=== PATIENT | female | born 1965 | race Caucasian/White ===

== ENCOUNTER 2018-10-16 07:03 | Outpatient (CLI) | payer OTHER, SELFPAY ==
[2018-10-16 08:55] LABS: ALT 46 U/L (12-78); AST 22 U/L (15-37); Albumin 3.8 g/dL (3.4-5.0); Alkaline Phosphatase 74 U/L (46-116); Anion Gap 8.7 mmol/L (3-11); BUN 15 mg/dL (7-18); Bilirubin, Total 0.5 mg/dL (0.2-1.0); CO2 27.3 mmol/L (21.0-32.0); CREATININE 0.88 mg/dL (0.55-1.02); Calcium 8.5 mg/dL (8.5-10.1); Chloride 104 mmol/L (98-107); Cholesterol 197 mg/dL (50-200); Glucose 97 mg/dL (70-100); HDL Cholesterol 70 mg/dL (40-60); LDL CHOLESTEROL 106 mg/dL (<100); Potassium 4.5 mmol/L (3.5-5.1); Sodium 140 mmol/L (136-145); Total Protein 6.9 g/dL (6.4-8.2); Triglyceride 91 mg/dL (30-150)
== END 2018-10-16 07:23 ==
PROVIDERS: Nurse Practitioner Family; PCP Emergency Medicine; Visit Provider Emergency Medicine
DX: Z00.00 Encounter for general adult medical examination without abnormal findings (principal); Z13.220 Encounter for screening for lipoid disorders; Z13.228 Encounter for screening for other metabolic disorders
CPT/HCPCS: 36415; 80053; 80061; 83721

== ENCOUNTER 2019-08-09 02:50 | Outpatient (CLI) | payer OTHER, SELFPAY | END 2019-08-09 03:10 | PROVIDERS: PCP Emergency Medicine; Visit Provider Nurse Practitioner | DX: R00.2 Palpitations (principal); I47.1 Supraventricular tachycardia; I49.1 Atrial premature depolarization | CPT/HCPCS: 93225 ==

== ENCOUNTER 2019-08-12 12:37 | Outpatient (CLI) | payer OTHER, SELFPAY ==
--- NOTE | 2019-08-16 11:28 | W.HOLTRPT ---
Date of service: 08/16/19 Time of Service: 11:28 Holter Monitor Report Holter Monitor Note: This is a 48-hour Holter monitor ordered for the indication of palpitations. ?There were 32 episodes of supraventricular tachycardia with the longest lasting 28 beats. Maximum heart rate was 159 bpm. ?There were frequent (12%) premature atrial contractions. ?There were 0 episodes of ventricular tachycardia and rare (0.2%) single ventricular ectopic beats. ?There were no pauses greater than 3 seconds, no episodes of atrial fibrillation and no evidence of high degree heart block. ?Patient triggered event was associated with supraventricular tachycardia.
== END 2019-08-12 12:57 ==
PROVIDERS: PCP Emergency Medicine; Visit Provider Emergency Medicine
DX: R00.2 Palpitations (principal); I47.1 Supraventricular tachycardia; I49.1 Atrial premature depolarization
CPT/HCPCS: 93226

== ENCOUNTER 2020-02-18 12:52 | Outpatient (REF) | payer OTHER, SELFPAY ==
[2020-02-18 20:17] LABS: *AMPHETAMINES SCREEN URINE Negative (Negative); *BARBITURATES SCREEN URINE Negative (Negative); *BENZODIAZEPINES SCREEN URINE Negative (Negative); Cannabinoids THC Negative (Negative); Cocaine Screen,Urine Negative (Negative); METHADONE URINE SCREEN Negative (Negative); OPIATES URINE SCREEN Negative (Negative); Tricyclic Antidepressants Negative (Negative)
== END 2020-02-18 13:12 ==
LOC: LBN 12:52
PROVIDERS: PCP Emergency Medicine; Visit Provider Family Medicine
DX: Z02.1 Encounter for pre-employment examination (principal); Z02.83 Encounter for blood-alcohol and blood-drug test
CPT/HCPCS: 80307

== ENCOUNTER 2020-05-29 04:16 | Outpatient (CLI) | payer OTHER, SELFPAY ==
[2020-05-30 20:29] LABS: Patient Race White; SARS-CoV-2 RNA Undetected (Undetected); SARS-CoV-2 Specimen Source Nasal
== END 2020-05-29 04:36 ==
PROVIDERS: PCP Emergency Medicine; Visit Provider Emergency Medicine
DX: Z11.59 Encounter for screening for other viral diseases (principal)
CPT/HCPCS: U0003

== ENCOUNTER 2020-07-20 02:35 | Outpatient (CLI) | payer OTHER, SELFPAY ==
[2020-07-21 15:35] LABS: COVID-19 RT-PCR Result NEGATIVE (Negative)
== END 2020-07-20 02:55 ==
PROVIDERS: PCP Emergency Medicine; Visit Provider Emergency Medicine
DX: Z20.822 Contact with and (suspected) exposure to COVID-19 (principal)
CPT/HCPCS: U0003

== ENCOUNTER 2020-09-11 03:40 | Outpatient (CLI) | payer OTHER, SELFPAY ==
[2020-09-12 12:49] LABS: COVID-19 RT-PCR UVMMC Result Negative (Negative)
== END 2020-09-11 03:41 | disposition home or self-care (01) ==
LOC: LBO 03:40
PROVIDERS: PCP Emergency Medicine; Visit Provider Emergency Medicine
DX: Z20.822 Contact with and (suspected) exposure to COVID-19 (principal)
CPT/HCPCS: U0003

== ENCOUNTER 2021-03-20 10:55 | Outpatient (CLI) | payer OTHER, SELFPAY ==
[2021-03-20 12:58] LABS: Anion Gap 7.4 mmol/L (3-11); CO2 27.6 mmol/L (21.0-32.0); Chloride 104 mmol/L (98-107); Potassium 4.5 mmol/L (3.5-5.1); Sodium 139 mmol/L (136-145)
[2021-03-22 21:27] LABS: Tissue Transglutaminase Ab IgA <1.2 U/mL
== END 2021-03-20 10:56 | disposition home or self-care (01) ==
LOC: LOS 10:56
PROVIDERS: PCP Emergency Medicine; Visit Provider Family Medicine
DX: E87.1 Hypo-osmolality and hyponatremia (principal); K52.9 Noninfective gastroenteritis and colitis, unspecified
CPT/HCPCS: 36415; 80051; 83516

== ENCOUNTER 2021-10-15 13:12 | Outpatient (CLI) | payer OTHER, SELFPAY ==
--- NOTE | 2021-10-15 09:45 | DI.RAD_ITS ---
Exam(s) XR FOOT RT COMPLETE EXAM: XR FOOT RT COMPLETE CLINICAL HISTORY: 2 months-pain lateral heel ,no trauma, very active M79.671. TECHNIQUE: 2D digital imaging was performed. Three views. COMPARISON: No exams were available for comparison FINDINGS: BONES: No acute fracture is present. No bony destructive lesion is seen. Small accessory navicular. Minimal spurring at the Achilles insertion and plantar fascial attachment on the calcaneus. JOINTS: No dislocation present. Mild degenerative changes 1st MTP joint. Minimal degenerative rodriguez es talonavicular joint. SOFT TISSUE: Normal. IMPRESSION: Mild degenerative changes. DATA REPOSITORY: RADIATION DOSE DELIVERED:
== END 2021-10-15 13:32 ==
PROVIDERS: PCP Family Medicine; Visit Provider Family Medicine
DX: M79.671 Pain in right foot (principal); M19.071 Primary osteoarthritis, right ankle and foot
CPT/HCPCS: 73630